=== PATIENT | male | born 1970 ===

== ENCOUNTER 2023-04-09 12:52 | Outpatient (AMB) | payer OTHER, SELFPAY ==
--- NOTE | 2023-04-09 13:02 | MHC.PC.OV ---
Vital Signs 04/09/23 13:05 Height 5 ft 4 in Weight 214 lb BMI 36.7 BP 110/72 Blood Pressure Location Rt brachial Position Sitting Pulse 80 Pulse Source Pulse Oximeter Pulse Oximetry (%) 96 Oxygen Delivery Method Room Air Intake Visit Reasons: Annual Physical Allergies No Known Allergies Allergy (Verified 04/09/23 13:18) Medication List - Last Reconciled 04/09/23 by SADIA Leroy No Known Home Meds Tobacco use date assessed: 04/09/23 Dental Screening Dental Screen Date: 04/09/23 Did you have a dental visit in the last 12 months?: No Did you have a dental problem in the last 6 months where you did not have access to dental care?: No Was dental information given to patient?: No HPI Annual Physical HPI Details Pt is here for a PE. Will order labs. Due for colon screen, will refer to GI. Due for PSA, will order. Denies dribbling with urination, weak stream, and nocturia. Hx of sleep apnea, will refer for sleep study. [facility] Social History Housing: House Patient Tobacco Use Status: Former Tobacco user Quit Date: quit 10 years ago Tobacco use type: Cigarette e-Cigarette/Vaping Use: Currently Using Second Hand Smoke Exposure: No service: No Current occupational status: employed Current occupation: [employer] Current occupational exposures/hazards: Yes Cognitive needs: No Hearing needs: No Vision needs: No Questionnaire PHQ-9 Over the last 2 weeks, how often have you been bothered by any of the following problems? 1. Little interest or pleasure in doing things: not at all 2. Feeling down, depressed, or hopeless: not at all 3. Trouble falling or staying asleep, or sleeping too much: not at all 4. Feeling tired or having little energy: not at all 5. Poor appetite or overeating: not at all 6. Feeling bad about yourself - or that you are a failure or have let yourself or your family down: not at all 7. Trouble concentrating on things, such as reading the newspaper or watching television: not at all 8. Moving or speaking so slowly that other people could have noticed. Or the opposite - being so fidgety or restless that you have been moving around a lot more than usual: not at all 9. Thoughts that you would be better off or of hurting yourself in some way: not at all Total score: 0 Source: Developed by Drs. Daniel Lenz, Lela Torres, Mustapha Jolly and colleagues, with an educational erik from [employer]. Thrive Questionnaire Date Thrive assessed: 04/09/23 I am a: Patient What is your living situation today?: I have a steady place to live Within the past 12 months, did the food you bought not last and you didn't have the money to get more?: Never true Within the past 12 months, did you worry whether your food would run out before you got money to buy more?: Never true Do you have trouble paying for medicines?: No Do you have trouble getting transportation to medical appointments?: No Do you have trouble paying your heating and electricity bill?: No Do you have trouble taking care of your child, family member or friend?: No Do you have trouble with day-to-day activities such as bathing, preparing meals, shopping, managing finances, etc.?: No Are you currently unemployed and looking for a job?: No Are you interested in more education?: No AUDIT C Alcohol Use Questionnaire (AUDIT-C) 1. How often do you have a drink containing alcohol?: Never Total Score: 0 JOSSY-7 AMB Questionnaire JOSSY-7 Date JOSSY - 7 assessed: 04/09/23 Feeling nervous, anxious, or on edge: 0 = Not at all Not being able to stop or control worryin = Several days Worrying too much about different things: 1 = Several days Trouble relaxin = Several days Being so restless that it is hard to sit still: 0 = Not at all Becoming easily annoyed or irritable: 0 = Not at all Feeling afraid as if something awful might happen: 0 = Not at all Total JOSSY-7 score (0-4 normal; 5-9 mild; 10-14 moderate; 15-21 severe): 3 Source: Developed by Drs. Daniel Lenz, Lela Torres, Mustapha Jolly and colleagues, with an educational erik from [employer]. Review of Systems Const Denies chills and Denies fever(s) Eyes Denies blurry vision ENT Denies vertigo, Denies dizziness and Denies sore throat Card Denies chest pain at rest, Denies chest pain with activity, Denies diaphoresis, Denies dyspnea and Denies dyspnea on exertion Resp Denies cough, Denies dyspnea, Denies dyspnea on exertion and Denies wheezing GI Denies abdominal pain, Denies melena, Denies hematochezia, Denies constipation, Denies diarrhea and Denies loose stools Denies hematuria Musc Denies numbness and Denies tingling Skin/Breast Denies lesions Neuro Denies vertigo, Denies dizziness, Denies numbness and Denies tingling Psych Denies anxiety, Denies depression, Denies homicidal ideation, Denies suicidal ideation and Denies other (substance abuse) Aller/Immun Denies wheezing Physical exam (Primary Care) Vital Signs: Last Vital Signs Pulse 80 04/09/23 13:05 BP 110/72 04/09/23 13:05 Pulse Ox 96 04/09/23 13:05 Oxygen Delivery Method Room Air 04/09/23 13:05 BMI result Body Mass Index 36.7 Tobacco/Smoking Status: Tobacco use Status Tobacco use date assessed 04/09/23 04/09/23 13:10 Patient Tobacco Use Status Former Tobacco user 04/09/23 13:10 Tobacco use type Cigarette 04/09/23 13:10 e-Cigarette/Vaping Use Currently Using 04/09/23 13:10 Const General: cooperative Nutritional Appearance: obese Orientation/consciousness: patient oriented x3 HENMT Head: Yes normal to inspection, Yes normocephalic and Yes atraumatic Ears: TM's normal bilaterally Eyes General: appearance normal, both eyes and all related structures Alignment and Position: alignment normal and position normal Neck Neck: Yes normal visual inspection and Yes no lymphadenopathy Thyroid: Thyroid normal Resp Effort & Inspection: normal respiratory effort Auscultation: clear to auscultation bilaterally Cardio Rate: regular rate Rhythm: regular rhythm Heart sounds: S1 normal heart sound present, S2 normal heart sound present and no murmurs GI Palpation (GI): Soft to palpation and nontender Auscultation: normal bowel sounds Male General Exam: Yes normal external exam Penis: normal penis Scrotum: scrotum normal, testes descended bilaterally and no inguinal hernias Testes: no testicular mass Skin Rashes: no rashes Neuro General: patient oriented x3, moves all extremities, no focal motor deficits and deep tendon reflexes 2+ bilaterally Romberg Test: Negative Psych Appearance: grossly normal Mental Status: mental status grossly normal Speech and movement: Normal speech and movement present Affect: normal affect Attitude: cooperative Thought process: Normal thought process present Thought content: Normal thought content present Insight: Good insight present (Psych) Judgement: Good judgement present (Psych) Assessment and Plan Assessment & Plan (1) Physical exam: Code(s): Z00.00 - Encounter for general adult medical examination without abnormal findings Plan: Labs ordered (2) Sleep apnea: Code(s): G47.30 - Sleep apnea, unspecified Plan: Referred for sleep study (3) Obesity: Code(s): E66.9 - Obesity, unspecified Plan: Referred for sleep study (4) Screening PSA (prostate specific antigen): Code(s): Z12.5 - Encounter for screening for malignant neoplasm of prostate Plan: PSA ordered (5) Screening for colon cancer: Code(s): Z12.11 - Encounter for screening for malignant neoplasm of colon Plan: Referred to GI Plan The patient agreed to the use of a internist medical doctor md for this encounter. Scribed for TRIXIE Davila-BC by Mera Wang internist medical doctor md, on 04/09/2023 at 13:15 EST. Orders: Orders Comprehensive [place]. Panel Fast Today Z00.00 - Encounter for general adult medical examination without abnormal findings Lipid Panel Today Z00.00 - Encounter for general adult medical examination without abnormal findings TSH reflex Free T4 Today Z00.00 - Encounter for general adult medical examination without abnormal findings Complete Blood Count Auto Diff Today Z00.00 - Encounter for general adult medical examination without abnormal findings UA CC w/rflx Micro + Cult Today Z00.00 - Encounter for general adult medical examination without abnormal findings Prostate Specific Antigen Scr Today Z12.5 - Encounter for screening for malignant neoplasm of prostate Referrals Sleep Medicine Referral E66.9 - Obesity, unspecified, G47.30 - Sleep apnea, unspecified Gastroenterology Referral Z12.11 - Encounter for screening for malignant neoplasm of colon Medications: New sildenafil administer 30 minutes to 4 hours before activity 100 mg PO DAILY 20 days PRN 20 tabs 0RF sexual activity Coding Level of Care Code New Pt Prev Care 40-64y(97527) Diagnoses Physical exam Z00.00 Sleep apnea G47.30 Obesity E66.9 Screening PSA (prostate specific antigen) Z12.5 Screening for colon cancer Z12.11
[2023-04-09 13:05] VITALS: BP 110/72; PULSE 80; O2SAT 96; BMI 36.7
== END 2023-04-09 14:39 | disposition home or self-care (01) ==
PROVIDERS: PCP Nurse Practitioner Family; Visit Provider Nurse Practitioner Family
DX: Z00.00 Encounter for general adult medical examination without abnormal findings (principal); G47.30 Sleep apnea, unspecified; E66.9 Obesity, unspecified; Z68.36 Body mass index [BMI] 36.0-36.9, adult
CPT/HCPCS: 99386

== ENCOUNTER 2023-05-01 09:15 | Outpatient (REF) | payer OTHER, SELFPAY ==
[2023-05-01 11:33] LABS: MANUAL DIFF FLAG NO
[2023-05-01 11:47] LABS: Basophils Percent Auto 0.5 % (0-2); Eosinophils Absolute Auto 0.1 X10*3/uL (0.0-0.4); Eosinophils Percent Auto 1.2 % (0-4); Hematocrit 46.5 % (42.0-52.0); Hemoglobin 15.9 g/dl (14.0-18.0); Imm Gran Abs Auto 0.06 X10*3/uL (0.00-0.03); Lymphocytes Absolute Auto 1.7 X10*3/uL (1.2-4.9); Lymphocytes Percent Auto 29.2 % (20-40); Mean Corpuscular HGB Conc 34.2 g/dl (31.0-36.0); Mean Corpuscular Hemoglobin 30.1 pg (27.0-33.0); Mean Corpuscular Volume 88.1 fL (80.0-98.0); Mean Platelet Volume 10.2 fL (9.4-12.4); Monocytes Absolute Auto 0.7 X10*3/uL (0.1-1.2); Monocytes Percent Auto 11.3 % (2-11); Neutrophils Absolute Auto 3.3 x10*3/uL (2.0-8.3); Neutrophils Percent Auto 56.8 % (45-73); Platelet Count 226 X10*3/uL (160-400); Red Blood Count 5.28 X10*6/uL (4.60-5.80); Red Cell Distribution Width 13.1 % (11.0-16.0); White Blood Count 5.8 X10*3/uL (4.8-10.8)
[2023-05-01 12:07] LABS: Appearance Urine Clear; Color Urine Yellow; Glucose Urine UA Negative (Negative); Leukocyte Esterase Urine Negative (Negative); Nitrite Urine Negative (Negative); PH 5.5 (5.0-9.0); Specific Gravity - Urine 1.025 (1.005-1.025); Urine Blood Negative (Negative); Urine Ketones Negative (Negative); Urine Protein Negative (Neg-Trace)
[2023-05-01 12:12] LABS: Alanine Aminotransferase 30 U/L (0-40); Albumin Level 4.2 g/dL (3.5-5.0); Alkaline Phosphatase 103 U/L (39-117); Anion Gap 12 (12-20); Aspartate Amino Transferase 23 U/L (5-37); Bilirubin Total 0.4 mg/dL (0.0-1.0); Blood Urea Nitrogen 16 mg/dL (9-16); Calcium 9.8 mg/dL (8.4-10.2); Carbon Dioxide 28 mmol/L (22-29); Chloride 106 mmol/L (96-108); Cholesterol 195 mg/dL (<200); Estimated Glomerular Filt Rate > 60; Glucose Fasting 105 mg/dL (60-99); HDL Cholesterol 35 mg/dL (>40); LDL Cholesterol Calculated 132 mg/dL (<100); Potassium 4.8 mmol/L (3.3-5.1); Sodium 141 mmol/L (135-145); Total Protein 7.5 g/dL (6.5-8.0); Triglycerides 143 mg/dL (<150)
[2023-05-01 12:23] LABS: Prostate Specific Antigen Scr 1.68 ng/mL (<0.05-4.0)
== END 2023-05-01 09:16 | disposition home or self-care (01) ==
LOC: HO.HMGCLDS 09:15
PROVIDERS: PCP Nurse Practitioner Family; Visit Provider Nurse Practitioner Family
DX: Z00.00 Encounter for general adult medical examination without abnormal findings (principal); Z12.5 Encounter for screening for malignant neoplasm of prostate; E66.9 Obesity, unspecified; Z13.220 Encounter for screening for lipoid disorders; Z13.29 Encounter for screening for other suspected endocrine disorder; Z13.0 Encounter for screening for diseases of the blood and blood-forming organs and certain disorders involving the immune mechanism
CPT/HCPCS: 36415; 80053; 80061; 81003; 84153; 84443; 85025

== ENCOUNTER 2023-07-17 14:49 | Outpatient (AMB) | payer OTHER, SELFPAY ==
--- NOTE | 2023-07-17 14:53 | A.OFFVIS_ITS ---
Intake Vital Signs 07/17/23 14:54 Height 5 ft 4 in Weight 215 lb BMI 36.9 BP 130/82 Blood Pressure Location Lt brachial Pulse 81 Pulse Source Pulse Oximeter Pulse Oximetry (%) 98 Oxygen Delivery Method Room Air Intake Visit Reasons: I-WEB CONTENT EDITOR: Sleep Apnea - Confirmed Allergies No Known Allergies Allergy (Verified 07/17/23 14:57) HPI HPI Comments History of Present Illness Details 53 y/o male patient presents for new in- person visit for sleep consulta tion. Pt reports difficulty falling asleep and staying sleep. He tosses and turns all night long, he wakes up every time he moves. He can have 5 hrs sleep. Tried melatonin 10 mg, sometimes it works sometimes not. He sleeps better off days. Pt reports loud snoring, and witnessed apnea spells. He broke his nose when he was teenager, he was doing boxing. He was evaluated by ENT, but he did not want to have surgery to fix the deviated septum. Pt reports he drinks 2 L of coke throughout the day, and vapes right before bedtime, too. He also eats candies and sweets a lot. Sleep questionnaire: Have you ever been diagnosed with a sleep disorder? No. Have you ever had a sleep study in the past? No. Have you ever been treated for a sleep disorder? No. Do you take medications for a sleep disorder? Melatonin 10 mg sometimes. Do you snore? Yes, loudly. Do you wake up gasping at night? Happened few times. Do you have episodes of apneas? Yes. If yes, are they witnessed? Yes. Do you have episodes of nocturnal chest pain or dyspnea? No. Do you have difficulty initiating sleep? Yes. Do you have difficulty maintaining sleep? Yes. Do you wake up tired? Yes. Do you have headaches upon awakening? No. Do you wake up with dry mouth or throat? Yes. Do you have GERD? No. Do you have nocturia? No. Do you have nocturnal leg cramps? Yes. Do you have symptoms of restless legs? Yes. Do you act out your dreams? No. Sleep hygiene questionnaire: What is your usual sleep routine? Usual bedtime is at 10:30 -11 am; Usual wake up time is at 5 am. Do you take naps? No. Is your sleep environment cool, dark, and quiet? Yes. Do you exercise? Walking. Do you take caffeine or other stimulants? Soda throughout the day. Do you use electronics in bed? No. What is your work schedule? 6 am to 2:30 pm. Hypersomnolence questionnaire: Do you have daytime tiredness or fatigue? Yes. Do you easily fall asleep when inactive? No. Have you ever had episodes of sudden weakness? No. Have you ever had episodes of sudden weakness associated with strong emotions? No. PFSH Social History Housing: House Patient Tobacco Use Status: Former Tobacco user Quit Date: quit 10 years ago Tobacco use type: Cigarette e-Cigarette/Vaping Use: Currently Using Second Hand Smoke Exposure: No service: No Current occupational status: employed Current occupation: [employer] Current occupational exposures/hazards: Yes Cognitive needs: No Hearing needs: No Vision needs: No Review of Systems Const All systems reviewed & are unremarkable except as noted in HPI and below ENT Reports Normal hearing present Neuro Reports Normal hearing present Physical Exam Vital Signs: Last Vital Signs Pulse 81 07/17/23 14:54 BP 130/82 07/17/23 14:54 Pulse Ox 98 07/17/23 14:54 Oxygen Delivery Method Room Air 07/17/23 14:54 BMI result Body Mass Index 36.9 Const General: cooperative and healthy appearing Nutritional Appearance: obese Orientation/consciousness: patient oriented x3 Neck Neck: Yes full ROM and Yes supple Resp Effort & Inspection: normal respiratory effort and able to speak in complete sentences Neuro General: patient oriented x3, gait normal and moves all extremities Cranial nerves: Yes Intact sense of smell present, Yes Bilaterally intact EOM present, Yes Normal facial strength present, Yes Midline tongue present, Yes Symmetric palate elevation present, Yes Normal hearing present, Yes Ability to bilaterally rotate head present and Yes Ability to bilaterally elevate shoulders present Cognition (Neuro): normal cognition Gait exam (Neuro): Normal gait present Motor exam (neuro): 5/5 motor strength present throughout, Pronator motor function not present and no tremor noted Psych Appearance: grossly normal Mental Status: mental status grossly normal Speech and movement: Normal speech and movement present Affect: normal affect Attitude: cooperative Assessment & Plan Assessment & Plan (1) Daytime sleepiness: Code(s): R40.0 - Somnolence (2) Sleep apnea: Code(s): G47.30 - Sleep apnea, unspecified (3) Loud snoring: Code(s): R06.83 - Snoring Plan Pt is advised to undergo home sleep study to assess for sleep apnea. Will f/u with pt after study to discuss results and appropriate treatment options. Sleep hygiene education provided. Limit soda intake, and reduce vaping. Pt to call with any worsening concerns or questions. Orders: Orders RT home sleep study Today E66.9 - Obesity, unspecified, G47.30 - Sleep apnea, unspecified, R40.0 - Somnolence Coding Level of Care Code New Pt Level 3 (84320) Diagnoses Daytime sleepiness R40.0 Sleep apnea G47.30 Loud snoring R06.83
[2023-07-17 14:54] VITALS: BP 130/82; PULSE 81; O2SAT 98; BMI 36.9
== END 2023-07-17 15:29 | disposition home or self-care (01) ==
PROVIDERS: PCP Nurse Practitioner Family; Visit Provider Nurse Practitioner Family
DX: R40.0 Somnolence (principal); G47.30 Sleep apnea, unspecified; R06.83 Snoring
CPT/HCPCS: 99203

== ENCOUNTER → 2023-07-17 14:49 | Outpatient (BNVA) | payer OTHER, SELFPAY | PROVIDERS: PCP Nurse Practitioner Family; Visit Provider Nurse Practitioner Family ==

== ENCOUNTER 2023-11-17 15:19 | Outpatient (AMB) | payer OTHER, SELFPAY ==
--- NOTE | 2023-11-17 15:50 | MHC.OFFVIS ---
Vital Signs 11/17/23 15:58 Height 5 ft 4 in Weight 212 lb 6 oz BMI 36.5 BP 120/70 Blood Pressure Location Rt brachial Position Sitting Pulse 68 Pulse Source Pulse Oximeter Pulse Oximetry (%) 95 Oxygen Delivery Method Room Air Intake Visit Reasons: 4 mo f/u -DAHLIA Intake Note: Patient presents for 4 months F/U. Can't sleep at night, shakes during sleep and snores. Allergies No Known Allergies Allergy (Verified 11/17/23 15:58) HPI Comments Details: 53 y/o male patient presents for follow up of sleep study. Pt reports difficulty falling asleep and staying sleep. He tosses and turns all night long, he wakes up every time he moves. He can have 5 hrs sleep. The home sleep study ordered. 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 Tried melatonin 10 mg, sometimes it works sometimes not. He sleeps better off days. Pt reports loud snoring, and witnessed apnea spells. He broke his nose when he was teenager, he was doing boxing. He was evaluated by ENT, but he did not want to have surgery to fix the deviated septum. [facility] Social History Housing: House Patient Tobacco Use Status: Former Tobacco user Quit Date: quit 10 years ago Tobacco use type: Cigarette e-Cigarette/Vaping Use: Currently Using Second Hand Smoke Exposure: No service: No Current occupational status: employed Current occupation: [employer] Current occupational exposures/hazards: Yes Cognitive needs: No Hearing needs: No Vision needs: No Review of Systems Const All systems reviewed & are unremarkable except as noted in HPI and below ENT Reports Normal hearing present Neuro Reports Normal hearing present Physical Exam Vital Signs: Last Vital Signs Pulse 68 11/17/23 15:58 BP 120/70 11/17/23 15:58 Pulse Ox 95 11/17/23 15:58 Oxygen Delivery Method Room Air 11/17/23 15:58 BMI result Body Mass Index 36.5 Const General: cooperative and healthy appearing Nutritional Appearance: obese Orientation/consciousness: patient oriented x3 Neck Neck: Yes full ROM and Yes supple Resp Effort & Inspection: normal respiratory effort and able to speak in complete sentences Neuro General: patient oriented x3, gait normal and moves all extremities Cranial nerves: Yes Intact sense of smell present, Yes Bilaterally intact EOM present, Yes Normal facial strength present, Yes Midline tongue present, Yes Symmetric palate elevation present, Yes Normal hearing present, Yes Ability to bilaterally rotate head present and Yes Ability to bilaterally elevate shoulders present Cognition (Neuro): normal cognition Gait exam (Neuro): Normal gait present Motor exam (neuro): 5/5 motor strength present throughout, Pronator motor function not present and no tremor noted Psych Appearance: grossly normal Mental Status: mental status grossly normal Speech and movement: Normal speech and movement present Affect: normal affect Attitude: cooperative Assessment & Plan Assessment & Plan (1) Daytime sleepiness: Code(s): R40.0 - Somnolence Category: Medical (2) Sleep apnea: Code(s): G47.30 - Sleep apnea, unspecified Category: Medical (3) Loud snoring: Code(s): R06.83 - Snoring Category: Medical Plan Pt is advised to undergo home sleep study to assess for sleep apnea. Central scheduling phone number given to patient to schedule sleep study. Will f/u with pt after study to discuss results and appropriate treatment options. Sleep hygiene education provided. Limit soda intake, and reduce vaping. Pt to call with any worsening concerns or questions. Coding Level of Care Code Est Pt Level 3 (75574) Diagnoses Daytime sleepiness R40.0 Sleep apnea G47.30 Loud snoring R06.83
[2023-11-17 15:58] VITALS: BP 120/70; PULSE 68; O2SAT 95; BMI 36.5
== END 2023-11-17 16:10 | disposition home or self-care (01) ==
PROVIDERS: PCP Nurse Practitioner Family; Visit Provider Nurse Practitioner Family
DX: R40.0 Somnolence (principal); G47.30 Sleep apnea, unspecified; R06.83 Snoring
CPT/HCPCS: 99213

== ENCOUNTER → 2023-11-17 15:19 | Outpatient (BNVA) | payer OTHER, SELFPAY | PROVIDERS: PCP Nurse Practitioner Family; Visit Provider Nurse Practitioner Family ==

== ENCOUNTER → 2023-12-22 14:44 | Outpatient (REF) | payer OTHER, SELFPAY | LOC: HO.SL 14:44 | PROVIDERS: PCP Nurse Practitioner Family; Visit Provider Nurse Practitioner Family | DX: G47.30 Sleep apnea, unspecified (principal); E66.9 Obesity, unspecified; R40.0 Somnolence | CPT/HCPCS: 95806 ==

== ENCOUNTER → 2023-12-22 14:55 | Outpatient (BNV) | payer OTHER, SELFPAY | PROVIDERS: PCP Nurse Practitioner Family; Visit Provider Psychiatry & Neurology Neurology | DX: G47.33 Obstructive sleep apnea (adult) (pediatric) (principal) | CPT/HCPCS: 95806 ==

== ENCOUNTER 2024-02-24 11:14 | Outpatient (AMB) | payer OTHER, SELFPAY ==
[2024-02-24 11:47] VITALS: BP 122/70; PULSE 75; TEMP 36.6; O2SAT 96
--- NOTE | 2024-02-24 11:47 | AM.OFFWIN_ITS ---
Intake Vital Signs 3 02/24/24 11:47 Height 5 ft 4 in BP 122/70 Blood Pressure Location Rt brachial Position Sitting Pulse 75 Pulse Source Pulse Oximeter Temp 97.9 F Temp Source Oral Pulse Oximetry (%) 96 Oxygen Delivery Method Room Air Intake Visit Reasons: EP Lower back pain Intake Note: pt is here for lower back pain Patient Tobacco Use Status: Former Tobacco user Allergies No Known Allergies Allergy (Verified 02/24/24 11:48) Medication List - Last Reconciled 02/24/24 by Lsahanda Barajas MD cyclobenzaprine 10 mg PO BEDTIME diclofenac sodium 75 mg PO BID 10 days prednisone 10 mg PO DAILY 3 days sildenafil 100 mg PO DAILY PRN 20 days Do you need a note to return to daycare/school/sports/work: No HPI EP Lower back pain 2 HPI0 Details Patient is a 54-year-old gentleman came in today to be evaluated for lower back pain Of 3 days' duration Patient has been working in his yd and around the house but did not do any extensive exertion He says that he has had pain before but usually does not last that long He is having difficulty finding a good sleeping spot at night. Pain is located lower back radiating to right buttock No bowel or bladder issue On examination is straight leg sign is negative, lumbar spine percussion within normal limit I am getting a baseline x-ray of his lumbar spine He will be taking cyclobenzaprine 10 mg at night Prednisone 10 mg once a day for 3 days And diclofenac 75 mg with food b.i.d. for 10 days Follow up with primary care [facility] Social History Housing: House Patient Tobacco Use Status: Former Tobacco user Tobacco use type: Cigarette e-Cigarette/Vaping Use: Currently Using Second Hand Smoke Exposure: No service: No Current occupational status: employed Current occupation: [employer] Current occupational exposures/hazards: Yes Cognitive needs: No Hearing needs: No Vision needs: No Review of Systems Const All systems reviewed & are unremarkable except as noted in HPI and below Physical Exam Vital Signs: Last Vital Signs Temp 97.9 F 02/24/24 11:47 Pulse 75 02/24/24 11:47 BP 122/70 02/24/24 11:47 Pulse Ox 96 02/24/24 11:47 Oxygen Delivery Method Room Air 02/24/24 11:47 Const General: no acute distress Orientation/consciousness: patient oriented x3 Eyes General: appearance normal, both eyes and all related structures Resp Effort & Inspection: normal respiratory effort and able to speak in complete sentences Back/Spine/Pelvis Back/spine/pelvis image: 2 1. Site of pain, no pain with lumbar spine percussion, range of motion intact, straight leg negative Neuro Other: Motor sensory intact General: patient oriented x3 Psych Mental Status: mental status grossly normal Assessment & Plan Assessment & Plan (1) Right lumbar radiculitis: Code(s): M54.16 - Radiculopathy, lumbar region (2) Lumbar pain: Code(s): M54.50 - Low back pain, unspecified Plan Patient is a 54-year-old gentleman came in today to be evaluated for lower back pain Of 3 days' duration Patient has been working in his yd and around the house but did not do any extensive exertion He says that he has had pain before but usually does not last that long He is having difficulty finding a good sleeping spot at night. Pain is located lower back radiating to right buttock No bowel or bladder issue On examination is straight leg sign is negative, lumbar spine percussion within normal limit I am getting a baseline x-ray of his lumbar spine He will be taking cyclobenzaprine 10 mg at night Prednisone 10 mg once a day for 3 days And diclofenac 75 mg with food b.i.d. for 10 days Follow up with primary care Orders: Orders 2 XR lumbar spine 2-3V Today M54.50 - Low back pain, unspecified Medications: New 2 cyclobenzaprine 10 mg PO BEDTIME 10 tabs 0RF muscle spasm prednisone 10 mg PO DAILY 3 tabs 0RF 3 days diclofenac sodium 75 mg PO BID 20 tabs 0RF pain 10 days Coding Level of Care Code Est Pt Level 3 (36445) Diagnoses Right lumbar radiculitis M54.16 Lumbar pain M54.50
== END 2024-02-24 12:54 | disposition home or self-care (01) ==
PROVIDERS: PCP Nurse Practitioner Family; Visit Provider Internal Medicine
DX: M54.16 Radiculopathy, lumbar region (principal); M54.50 Low back pain, unspecified
CPT/HCPCS: 99213

== ENCOUNTER 2024-02-24 11:59 | Outpatient (REF) | payer OTHER, SELFPAY ==
--- NOTE | ~2024-02-24 | XR_ITS ---
EXAMINATION: XR LUMBOSACRAL SPINE CLINICAL INFORMATION: Low back pain COMPARISON: Prior study 02/23/2015 TECHNIQUE: Three views of the lumbosacral spine. FINDINGS: The vertebral bodies and posterior elements are normal. The disc spaces are preserved and the vertebral alignment is normal. The paraspinal soft tissues are normal. XR/XR lumbar spine 2-3V IMPRESSION: No significant osseous changes to explain patient's pain symptoms.
== END 2024-02-24 12:00 | disposition home or self-care (01) ==
LOC: HO.HMGCX 11:59
PROVIDERS: PCP Nurse Practitioner Family; Visit Provider Internal Medicine
DX: M54.50 Low back pain, unspecified (principal)
CPT/HCPCS: 72100

== ENCOUNTER 2024-05-04 11:25 | Outpatient (AMB) | payer OTHER, SELFPAY ==
[2024-05-04 11:26] VITALS: BP 120/72; PULSE 76; O2SAT 98; BMI 34.5
--- NOTE | 2024-05-04 11:26 | MHC.PC.OV ---
Vital Signs 05/04/24 11:26 Height 5 ft 4 in Weight 201 lb BMI 34.5 BP 120/72 Blood Pressure Location Rt brachial Position Sitting Pulse 76 Pulse Source Pulse Oximeter Pulse Oximetry (%) 98 Intake Visit Reasons: PE Intake Note: pt is here for physical exam Lead Solutions Architect Required: No Accompanied by: Self / Same As Patient Allergies No Known Allergies Allergy (Verified 05/04/24 11:29) Medication List - Last Reconciled 05/04/24 by SADIA Leroy sildenafil 100 mg PO DAILY PRN 20 days Tobacco use date assessed: 05/04/24 Dental Screening Dental Screen Date: 05/04/24 Did you have a dental visit in the last 12 months?: Yes Did you have a dental problem in the last 6 months where you did not have access to dental care?: No Was dental information given to patient?: Patient has dentist HPI PE HPI Details Pt is here for a PE. Will order labs. Due for colon screen, will order cologuard. Due for PSA, will order. Denies dribbling with urination, weak stream, and frequent nocturia. PFSH Surgical History No pertinent past surgical history Social History Housing: House Patient Tobacco Use Status: Former Tobacco user Tobacco use type: Cigarette e-Cigarette/Vaping Use: Currently Using Second Hand Smoke Exposure: No service: No Current occupational status: employed Current occupation: [employer] Current occupational exposures/hazards: Yes Cognitive needs: No Hearing needs: No Vision needs: No Questionnaire PHQ-9 Over the last 2 weeks, how often have you been bothered by any of the following problems? 1. Little interest or pleasure in doing things: not at all 2. Feeling down, depressed, or hopeless: not at all 3. Trouble falling or staying asleep, or sleeping too much: not at all 4. Feeling tired or having little energy: not at all 5. Poor appetite or overeating: not at all 6. Feeling bad about yourself - or that you are a failure or have let yourself or your family down: not at all 7. Trouble concentrating on things, such as reading the newspaper or watching television: not at all 8. Moving or speaking so slowly that other people could have noticed. Or the opposite - being so fidgety or restless that you have been moving around a lot more than usual: not at all 9. Thoughts that you would be better off or of hurting yourself in some way: not at all Total score: 0 Depression Screening Interpretation: Negative Depression Screening Done: Yes 70958 - PHQ-9 Billing: Yes Source: Developed by Drs. Daniel Lenz, Lela Torres, Mustapha Jolly and colleagues, with an educational erik from [employer]. Thrive Questionnaire Date Thrive assessed: 05/04/24 I am a: Patient What is your living situation today?: I have a steady place to live Within the past 12 months, did the food you bought not last and you didn't have the money to get more?: Never true Within the past 12 months, did you worry whether your food would run out before you got money to buy more?: Never true Do you have trouble paying for medicines?: No Do you have trouble getting transportation to medical appointments?: No Do you have trouble paying your heating and electricity bill?: No Do you have trouble taking care of your child, family member or friend?: No Do you have trouble with day-to-day activities such as bathing, preparing meals, shopping, managing finances, etc.?: No Are you currently unemployed and looking for a job?: No Are you interested in more education?: No Please select the resources that you would like help with: None Currently or been in a relationship where the following occur: No concerns reported THRIVE Score: 0 AUDIT C Alcohol Use Questionnaire (AUDIT-C) 1. How often do you have a drink containing alcohol?: Never Total Score: 0 Score Reviewed/Action Taken: Yes JOSSY-7 AMB Questionnaire JOSSY-7 Date JOSSY - 7 assessed: 05/04/24 Feeling nervous, anxious, or on edge: 0 = Not at all Not being able to stop or control worryin = Not at all Worrying too much about different things: 0 = Not at all Trouble relaxin = Not at all Being so restless that it is hard to sit still: 0 = Not at all Becoming easily annoyed or irritable: 0 = Not at all Feeling afraid as if something awful might happen: 0 = Not at all Total JOSSY-7 score (0-4 normal; 5-9 mild; 10-14 moderate; 15-21 severe): 0 Source: Developed by Drs. Daniel Lenz, Lela Torres, Mustapha Jolly and colleagues, with an educational erik from [employer]. JOSSY-7 Assessment Billing JOSSY-7 Assessment Tool: JOSSY-7 Assessment 27358 Review of Systems Const Denies chills and Denies fever(s) Eyes Denies blurry vision ENT Denies vertigo, Denies dizziness and Denies sore throat Card Denies chest pain at rest, Denies chest pain with activity, Denies diaphoresis, Denies dyspnea and Denies dyspnea on exertion Resp Denies cough, Denies dyspnea, Denies dyspnea on exertion and Denies wheezing GI Denies abdominal pain, Denies melena, Denies hematochezia, Denies constipation, Denies diarrhea and Denies loose stools Denies hematuria Musc Denies numbness and Denies tingling Skin/Breast Denies lesions Neuro Denies vertigo, Denies dizziness, Denies numbness and Denies tingling Psych Denies anxiety, Denies depression, Denies homicidal ideation, Denies suicidal ideation and Denies other (substance abuse) Aller/Immun Denies wheezing Physical exam (Primary Care) Vital Signs: Last Vital Signs Pulse 76 05/04/24 11:26 BP 120/72 05/04/24 11:26 Pulse Ox 98 05/04/24 11:26 BMI result Body Mass Index 34.5 Tobacco/Smoking Status: Tobacco use Status Tobacco use date assessed 05/04/24 05/04/24 11:28 Patient Tobacco Use Status Former Tobacco user 05/04/24 11:28 Tobacco use type Cigarette 05/04/24 11:28 e-Cigarette/Vaping Use Currently Using 05/04/24 11:28 PHQ-9: PHQ-9 Score PHQ-9: Total score 0 05/04/24 11:30 Depression Screening Interpretation: Negative Thrive Assessment: Date of Thrive Assessment Date Thrive assessed 05/04/24 05/04/24 11:28 Currently or been in a relationship where the following occur: No concerns reported Const General: cooperative Nutritional Appearance: well nourished Orientation/consciousness: patient oriented x3 HENMT Head: Yes normal to inspection, Yes normocephalic and Yes atraumatic Ears: TM's normal bilaterally Eyes General: appearance normal, both eyes and all related structures Alignment and Position: alignment normal and position normal Neck Neck: Yes normal visual inspection, Yes no lymphadenopathy and Yes supple Resp Effort & Inspection: normal respiratory effort Auscultation: clear to auscultation bilaterally Cardio Rate: regular rate Rhythm: regular rhythm Heart sounds: S1 normal heart sound present, S2 normal heart sound present and no murmurs GI Palpation (GI): Soft to palpation and nontender Auscultation: normal bowel sounds Male General Exam: Yes normal external exam Penis: normal penis Scrotum: scrotum normal, testes descended bilaterally and no inguinal hernias Testes: no testicular mass Skin Rashes: no rashes Neuro General: patient oriented x3, moves all extremities, no focal motor deficits and deep tendon reflexes 2+ bilaterally Romberg Test: Negative Psych Appearance: grossly normal Mental Status: mental status grossly normal Speech and movement: Normal speech and movement present Affect: normal affect Attitude: cooperative Thought process: Normal thought process present Thought content: Normal thought content present Insight: Good insight present (Psych) Judgement: Good judgement present (Psych) Assessment and Plan Assessment & Plan (1) Physical exam: Code(s): Z00.00 - Encounter for general adult medical examination without abnormal findings Plan: Labs ordered (2) Screening PSA (prostate specific antigen): Code(s): Z12.5 - Encounter for screening for malignant neoplasm of prostate Plan: PSA ordered (3) Vapes nicotine containing substance: Code(s): Z72.0 - Tobacco use Plan: went over the dangers of use Plan The patient agreed to the use of a medical instrument technician for this encounter. Scribed for SADIA Davila by Mera Wang medical instrument technician, on 05/04/2024 at 11:45 EST. Orders: Orders Comprehensive [place]. Panel Fast Today Z00.00 - Encounter for general adult medical examination without abnormal findings TSH reflex Free T4 Today Z00.00 - Encounter for general adult medical examination without abnormal findings AMB EKG-In Office Today Z00.00 - Encounter for general adult medical examination without abnormal findings Complete Blood Count Auto Diff Today Z00.00 - Encounter for general adult medical examination without abnormal findings UA CC w/rflx Micro + Cult Today Z00.00 - Encounter for general adult medical examination without abnormal findings Lipid Panel Today Z00.00 - Encounter for general adult medical examination without abnormal findings Prostate Specific Antigen Scr Today Z12.5 - Encounter for screening for malignant neoplasm of prostate Referrals Cologuard Test Z12.11 - Encounter for screening for malignant neoplasm of colon, Z12.12 - Encounter for screening for malignant neoplasm of rectum Medications: Refilled sildenafil administer 30 minutes to 4 hours before activity 100 mg PO DAILY 20 days PRN 20 tabs 0RF sexual activity Coding Level of Care Code Est Pt Prev Care 40-64y(88110) Diagnoses Physical exam Z00.00 Screening PSA (prostate specific antigen) Z12.5 Vapes nicotine containing substance Z72.0 Additional Codes JOSSY-7 Assessment Billing - JOSSY-7 Assessment Tool: JOSSY-7 Assessment 57541 ([id number])
== END 2024-05-04 15:34 | disposition home or self-care (01) ==
PROVIDERS: PCP Nurse Practitioner Family; Visit Provider Nurse Practitioner Family
DX: Z00.00 Encounter for general adult medical examination without abnormal findings (principal); Z12.5 Encounter for screening for malignant neoplasm of prostate; Z72.0 Tobacco use

== ENCOUNTER → 2024-05-04 11:25 | Outpatient (BNVA) | payer OTHER, SELFPAY | PROVIDERS: PCP Nurse Practitioner Family; Visit Provider Nurse Practitioner Family | DX: Z00.00 Encounter for general adult medical examination without abnormal findings (principal); Z72.0 Tobacco use | CPT/HCPCS: 96127 ==

== ENCOUNTER 2024-05-18 14:59 | Outpatient (AMB) | payer OTHER, SELFPAY ==
--- NOTE | 2024-05-18 15:01 | A.OFFVIS_ITS ---
Vital Signs 05/18/24 15:02 Height 5 ft 4 in Weight 204 lb BMI 35.0 Intake Visit Reasons: Follow up Intake Note: Patient presents for follow up. no issues no concerns today. Allergies No Known Allergies Allergy (Verified 05/18/24 15:11) Medication List - Last Reconciled 05/18/24 by TRIXIE Stover sildenafil 100 mg PO DAILY PRN 20 days HPI Comments Details: 54-yr-old male presents for follow-up visit of sleep apnea. Since the last visit, pt underwent HST which revealed AHI 11/hr w/ O2 sharmin % w/ SpO2 < 90% x's 73 min, SpO2 < 88% x's 20 min, and average SpO2 91%, w/ apneas present in supine, left, and more so in prone position. Since pt has started APAP [id number]. He has been trying to use it, however, the mask has caused nasal skin irritation. He also feels the pressure dose not start high enough. The air feels too warm for him. And he often finds that he wakes up without the mask on. 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 Formerly [facility], Email: [email or web address] Compliance Report Usage 02/18/2024 - 05/17/2024 Usage days 42/90 days (47%) >= 4 hours 8 days (9%) < 4 hours 34 days (38%) Average usage (days used) 2 hours 2 minutes AirSense 10 AutoSet Serial number [id number] Mode AutoSet Min Pressure 5 cmH2O Max Pressure 20 cmH2O EPR Fulltime EPR level 2 Response Standard Therapy Pressure - cmH2O Median: 10.3 95th percentile: 13.5 Maximum: 14.4 Leaks - L/min Median: 15.3 95th percentile: 35.7 Maximum: 50.0 Events per hour AI: 6.2 HI: 1.8 AHI: 8.0 (residual apneas were less at pressures > 8). Apnea Index Central: 1.4 Obstructive: 3.2 Unknown: 1.6 RERA Index 2.6 [facility] Surgical History No pertinent past surgical history Social History Housing: House Patient Tobacco Use Status: Former Tobacco user Tobacco use type: Cigarette e-Cigarette/Vaping Use: Currently Using Second Hand Smoke Exposure: No service: No Current occupational status: employed Current occupation: [employer] Current occupational exposures/hazards: Yes Cognitive needs: No Hearing needs: No Vision needs: No Physical Exam Vital Signs: BMI result Body Mass Index 35.0 Const General: no acute distress Orientation/consciousness: patient oriented x3 HEENT Other: Visible nasal deviation Resp Effort & Inspection: normal respiratory effort and able to speak in complete sentences Neuro General: patient oriented x3 Psych Mental Status: mental status grossly normal Speech and movement: Clear speech present Attitude: cooperative Assessment & Plan Assessment & Plan (1) Mild obstructive sleep apnea: Code(s): G47.33 - Obstructive sleep apnea (adult) (pediatric) Category: Medical (2) Nocturnal hypoxemia: Code(s): G47.34 - Idiopathic sleep related nonobstructive alveolar hypoventilation Category: Medical (3) Deviated nasal bone: Code(s): J34.2 - Deviated nasal septum Category: Medical Plan Reviewed results of sleep study report, results c/w sleep apnea. Continue to try to increase APAP use. Discussed in-lab PAP titration study to identify optimal PAP tx settings, however, pt does not believe he would be able to sleep in a sleep lab. Will refer pt to ENT to see if there are alternate tx interventions. In the meantime: Adjusted PAP settings vis [employer] from APAP [id number] w/ EPR 2 and standard therapy pressure to APAP [id number] w/ EPR, soft therapy, and ramp time off. Pt advised he may self-adjust the humidification level. Try a full face mask- pt will purchase. Clean CPAP machine and supplies routinely. Change CPAP supplies routinely. Pt to contact us or respiratory company with any questions or concerns. Pt to follow-up in 6 months or sooner prn. Orders: Referrals Ear/Nose/Throat Referral G47.33 - Obstructive sleep apnea (adult) (pediatric), G47.34 - Idiopathic sleep related nonobstructive alveolar hypoventilation, J34.2 - Deviated nasal septum Coding Level of Care Code Est Pt Level 4 (10048) Diagnoses Mild obstructive sleep apnea G47.33 Nocturnal hypoxemia G47.34 Deviated nasal bone J34.2
[2024-05-18 15:02] VITALS: BMI 35.0
== END 2024-05-18 15:55 | disposition home or self-care (01) ==
PROVIDERS: PCP Nurse Practitioner Family; Visit Provider Nurse Practitioner Family
DX: G47.33 Obstructive sleep apnea (adult) (pediatric) (principal); G47.34 Idiopathic sleep related nonobstructive alveolar hypoventilation; J34.2 Deviated nasal septum
CPT/HCPCS: 99214

== ENCOUNTER → 2024-05-18 14:59 | Outpatient (BNVA) | payer OTHER, SELFPAY | PROVIDERS: PCP Nurse Practitioner Family; Visit Provider Nurse Practitioner Family ==

== ENCOUNTER 2025-05-23 11:04 | Outpatient (AMB) | payer OTHER, SELFPAY ==
--- NOTE | 2025-05-23 11:08 | A.OFFPC_ITS ---
Vital Signs 05/23/25 11:09 Height 5 ft 4 in Weight 204 lb BMI 35.0 BP 110/70 Blood Pressure Location Lt brachial Position Sitting Respiration 16 Pulse 80 Pulse Source Pulse Oximeter Temp 98.2 F Temp Source Oral Pulse Oximetry (%) 98 Intake Visit Reasons: annual PE Classified Copy Control Clerk Required: No Accompanied by: Self / Same As Patient Allergies No Known Allergies Allergy (Verified 05/23/25 11:30) Medication List - Last Reconciled 05/23/25 by TRIXIE Leroy- sildenafil 100 mg PO DAILY PRN 20 days Tobacco use date assessed: 05/23/25 Dental Screening Dental Screen Date: 05/23/25 Did you have a dental visit in the last 12 months?: Yes Did you have a dental problem in the last 6 months where you did not have access to dental care?: No HPI annual PE HPI Details History of Present Illness The patient is a 55-year-old male presenting for a physical examination and preventative care. He denies any chest pain, dyspnea, abdominal pain, hematochezia, constipation, diarrhea, or urinary issues. The patient has not completed a previously ordered Cologuard test for colon cancer screening but intends to do so now. The order for the test will be replaced to facilitate this screening. Health Maintenance - Colon cancer screening with stool test (Cologuard) to be completed Social History Review of Systems - Cardiovascular: Denies chest pain - Respiratory: Denies dyspnea - Gastrointestinal: Denies abdominal jackie n, hematochezia, constipation, diarrhea - Genitourinary: Denies urinary issues Physical Exam General: Cooperative, healthy appearing, comfortable, no acute distress and well developed, obese Orientation: Patient oriented x3 Limitations: No limitations Head: Normal to inspection Ears: Hearing grossly normal bilaterally Nose: Normal external nose present Face and sinus: Normal facial exam Eyes: Appearance normal, both eyes and all related structures Neck: Normal visual inspection and Yes full ROM Respiratory: Normal respiratory effort and able to speak in complete sentences. Clear to auscultation bilaterally Cardiovascular: Regular rate and rhythm. Normal S1 and S2 GI: Normal to inspection. Soft to palpation and nontender : testicles without masses/lesions and no hernias appreciated Skin: No rashes or lesions noted Neuro: Patient oriented x3 Extremities: Normal to inspection Results Plan 1. Obesity The patient is noted to be obese, which was observed during the physical examination. Discussion Notes I discussed with the patient the importance of completing the colon cancer screening with the Cologuard test, which he agreed to do. Patient Instructions - Complete the Cologuard test for colon cancer screening as soon as possible. [facility] Surgical History No pertinent past surgical history Social History Housing: House Patient Tobacco Use Status: Former Tobacco user Tobacco use type: Cigarette e-Cigarette/Vaping Use: Currently Using Second Hand Smoke Exposure: No service: No Current occupational status: employed Current occupation: [employer] Current occupational exposures/hazards: Yes Cognitive needs: No Hearing needs: No Vision needs: No Questionnaire Thrive Questionnaire Date Thrive assessed: 05/04/24 I am a: Patient What is your living situation today?: I have a steady place to live Within the past 12 months, did the food you bought not last and you didn't have the money to get more?: Never true Within the past 12 months, did you worry whether your food would run out before you got money to buy more?: Never true Do you have trouble paying for medicines?: No Do you have trouble getting transportation to medical appointments?: No Do you have trouble paying your heating and electricity bill?: No Do you have trouble taking care of your child, family member or friend?: No Do you have trouble with day-to-day activities such as bathing, preparing meals, shopping, managing finances, etc.?: No Are you currently unemployed and looking for a job?: No Are you interested in more education?: No Please select the resources that you would like help with: None Currently or been in a relationship where the following occur: No concerns reported THRIVE Score: 0 JOSSY-7 AMB Questionnaire JOSSY-7 Date JOSSY - 7 assessed: 05/23/25 Feeling nervous, anxious, or on edge: 0 = Not at all Not being able to stop or control worryin = Not at all Worrying too much about different things: 0 = Not at all Trouble relaxin = Not at all Being so restless that it is hard to sit still: 0 = Not at all Becoming easily annoyed or irritable: 0 = Not at all Feeling afraid as if something awful might happen: 0 = Not at all Total JOSSY-7 score (0-4 normal; 5-9 mild; 10-14 moderate; 15-21 severe): 0 Source: Developed by Drs. Daniel Lenz, Lela Torres, Mustapha Jolly and colleagues, with an educational erik from [employer]. JOSSY-7 Assessment Billing JOSSY-7 Assessment Tool: JOSSY-7 Assessment 31487 Physical exam (Primary Care) Vital Signs: Last Vital Signs Temp 98.2 F 05/23/25 11:09 Pulse 80 05/23/25 11:09 Resp 16 05/23/25 11:09 BP 110/70 05/23/25 11:09 Pulse Ox 98 05/23/25 11:09 BMI result Body Mass Index 35.0 Tobacco/Smoking Status: Tobacco use Status Tobacco use date assessed 05/23/25 05/23/25 11:15 Patient Tobacco Use Status Former Tobacco user 05/23/25 11:15 Tobacco use type Cigarette 05/23/25 11:15 e-Cigarette/Vaping Use Currently Using 05/23/25 11:15 Thrive Assessment: Date of Thrive Assessment Date Thrive assessed 05/04/24 05/23/25 11:15 Currently or been in a relationship where the following occur: No concerns reported Coding Level of Care Code Est Pt Prev Care 40-64y(28456) Diagnoses Physical exam Z00.00 Screening PSA (prostate specific antigen) Z12.5 Blood typing encounter Z01.83 Additional Codes JOSSY-7 Assessment Billing - JOSSY-7 Assessment Tool: JOSSY-7 Assessment 65842 ([id number]) Assessment & Plan Assessment & Plan (1) Physical exam: Code(s): Z00.00 - Encounter for general adult medical examination without abnormal findings Category: Medical (2) Screening PSA (prostate specific antigen): Code(s): Z12.5 - Encounter for screening for malignant neoplasm of prostate Category: Medical (3) Blood typing encounter: Code(s): Z01.83 - Encounter for blood typing Category: Medical Plan . Orders: Orders TSH reflex Free T4 Today Z00.00 - Encounter for general adult medical examination without abnormal findings ABO RH Type Today Z01.83 - Encounter for blood typing Complete Blood Count Auto Diff Today Z00.00 - Encounter for general adult medical examination without abnormal findings Comprehensive [place]. Panel Fast Today Z00.00 - Encounter for general adult medical examination without abnormal findings UA CC w/rflx Micro + Cult Today Z00.00 - Encounter for general adult medical examination without abnormal findings Lipid Panel Today Z00.00 - Encounter for general adult medical examination without abnormal findings Prostate Specific Antigen Scr Today Z12.5 - Encounter for screening for malign ant neoplasm of prostate Referrals Cologuard Test Z12.11 - Encounter for screening for malignant neoplasm of colon, Z12.12 - Encounter for screening for malignant neoplasm of rectum Medications: Refilled sildenafil administer 30 minutes to 4 hours before activity 100 mg PO DAILY PRN 20 tabs 2RF sexual activity 20 days
[2025-05-23 11:09] VITALS: BP 110/70; PULSE 80; RESP 16; TEMP 36.8; O2SAT 98; BMI 35.0
--- OUTSIDE RECORDS SUMMARY | 2025-05-23 11:09 | XMS_ITS | Clinical Summary ---
Author Organization [facility] Address [address] [facility] [place] [address] Care Team Providers Care Freight Loader Name Role Phone Pcp, No Primary Care Provider [phone] Social History Tobacco Use Types Packs/Day Years Used Date Smoking Tobacco: Never Assessed Sex and Gender Information Value Date Recorded Sex Assigned at Not on file Legal Sex Male 12:50 PM EDT Gender Identity Not on file Sexual Orientation Not on file Plan of Treatment Health Maintenance Due Date Last Done Comments Colorectal Cancer: COLONOSCO PY Screening every 10 yrs (or Modifier) 1971 Depression: Screening Annual ly using PHQ-2/9 in Adults 18 yrs or above (or HM Modifier)([facility]) 1989 Hepatitis C Virus Infection in Adolescents and Adults: Screening (or Modifier) ([facility]) 1989 SDNH Screening Reminder: Annamarie loza for all adults ([facility]) 1989 Tobacco Smoking Cessation: i n Adults excluding Women: Behavioral and Pharmacotherapy Interventions ([facility]) 1989 DTaP/Tdap/Td Vaccines ([facility]) (1 - Tdap) 1990 Colorectal Cancer Screening 45 -75 Yrs (or HM Modifier ) 01/24/2016 Colorectal Cancer: FLEXIBLE SIGMOIDOSCOPY Screening every 5 yrs 01/24/2016 Colorectal Cancer: Fecal Imm unochemical Test (FIT) Annually [facility] 01/24/2016 Colorectal Cancer: High-sens itivity gFOBT Screening Annually [facility] 01/24/2016 Colorectal Cancer: Stool Col oguard Screening every 3 yrs 01/24/2016 Colorectal Cancer:CT Colonography Screening every 5 yr s 01/24/2016 Pneumococcal Vaccination Scr eening: Patients 50+ yrs of age ([facility]) (1 of 1 - PCV) 2021 Zoster/Shingles Vaccine Seri es Screening: Adults aged 18+ yrs (or HM Modifiers)([facility]) (1 of 2) 2021 Flu Vaccination: Yearly for ages 18mos through 64 years (or Modifier)([facility]) 03/11/2025 COVID-19 Vaccine Screening: Initial Series and Booster Status ([facility]) (2023- season) 2025 [employer] Devices Not on file Insurance [facility] Care Teams Freight Loader Relationship Specialty Start Date End Date Pcp, No PCP - General Family Medicine 06/07/21
== END 2025-05-23 11:59 | disposition home or self-care (01) ==
PROVIDERS: PCP Nurse Practitioner Family; Visit Provider Nurse Practitioner Family
DX: Z00.00 Encounter for general adult medical examination without abnormal findings (principal); Z12.5 Encounter for screening for malignant neoplasm of prostate; Z01.83 Encounter for blood typing

== ENCOUNTER → 2025-05-23 11:04 | Outpatient (BNVA) | payer OTHER, SELFPAY | PROVIDERS: PCP Nurse Practitioner Family; Visit Provider Nurse Practitioner Family | DX: Z00.00 Encounter for general adult medical examination without abnormal findings (principal); Z13.39 Encounter for screening examination for other mental health and behavioral disorders; E66.9 Obesity, unspecified; Z68.35 Body mass index [BMI] 35.0-35.9, adult | CPT/HCPCS: 96127 ==

== ENCOUNTER 2025-06-21 11:52 | Outpatient (REF) | payer OTHER, SELFPAY ==
[2025-06-21 13:44] LABS: MANUAL DIFF FLAG NO
[2025-06-21 13:45] LABS: Appearance Urine Clear; Glucose Urine UA Negative (Negative); PH 5.5 (5.0-9.0); Specific Gravity - Urine 1.020 (1.005-1.025)
[2025-06-21 13:53] LABS: Hematocrit 47.1 % (42.0-52.0); Hemoglobin 15.8 g/dl (14.0-18.0); Imm Gran Abs Auto 0.03 X10*3/uL (0.00-0.03); Imm Gran Pct Auto 0.5 % (0.0-0.4); Lymphocytes Absolute Auto 1.5 X10*3/uL (1.2-4.9); Mean Corpuscular HGB Conc 33.5 g/dl (31.0-36.0); Mean Corpuscular Hemoglobin 29.8 pg (27.0-33.0); Mean Corpuscular Volume 88.7 fL (80.0-98.0); NRBC Abs Auto 0.000 X10*3/uL (0.0-0.012); NRBC Pct Auto 0.0 /100WBC (0.0-0.2); Platelet Count 213 X10*3/uL (160-400); Red Blood Count 5.31 X10*6/uL (4.60-5.80); White Blood Count 5.8 X10*3/uL (4.8-10.8)
[2025-06-21 14:13] LABS: Alanine Aminotransferase 33 U/L (0-40); Albumin Level 4.3 g/dL (3.5-5.0); Alkaline Phosphatase 95 U/L (39-117); Anion Gap 9 (12-20); Aspartate Amino Transferase 30 U/L (5-37); Blood Urea Nitrogen 14 mg/dL (9-16); Calcium 9.2 mg/dL (8.4-10.2); Carbon Dioxide 28 mmol/L (22-29); Chloride 107 mmol/L (96-108); Cholesterol 187 mg/dL (<200); Estimated Glomerular Filt Rate > 60; HDL Cholesterol 35 mg/dL (>40); Potassium 4.4 mmol/L (3.3-5.1); Sodium 140 mmol/L (135-145); Total Protein 7.0 g/dL (6.5-8.0); Triglycerides 133 mg/dL (<150)
== END 2025-06-21 11:53 | disposition home or self-care (01) ==
LOC: HO.HMGCLDS 11:52
PROVIDERS: PCP Nurse Practitioner Family; Visit Provider Nurse Practitioner Family
DX: Z00.00 Encounter for general adult medical examination without abnormal findings (principal); Z12.5 Encounter for screening for malignant neoplasm of prostate; Z13.29 Encounter for screening for other suspected endocrine disorder; Z13.6 Encounter for screening for cardiovascular disorders; Z01.83 Encounter for blood typing
CPT/HCPCS: 36415; 80053; 80061; 81003; 84153; 84443; 85025; 86900; 86901